=== PATIENT | female | born 1975 | race American Indian/Alaskan Native ===

== ENCOUNTER 2020-05-27 15:10 | Emergency (ER) | payer BC ==
[~2020-05-27] VITALS: Ht 165.1 cm; Wt 120.0 kg
[~2020-05-27 15:10] MED LIST: ONDA4TAB6 PO
[2020-05-27 15:31] VITALS: BP 148/76
[2020-05-27 16:13] LABS: ALANINE AMINOTRANSFERASE 32 U/L (12-78); ALBUMIN 3.6 G/DL (3.4-5.0); ALKALINE PHOSPHATASE 78 IU/L (46-116); ANION GAP 10 (8-16); ASPARTATE AMINO TRANSFERASE 20 U/L (10-37); BILIRUBIN,TOTAL 0.3 MG/DL (0.1-1.0); BLOOD UREA NITROGEN 17 MG/DL (7-18); BUN/CREATININE RATIO 15.7 (6.6-38.0); CALCIUM 9.1 MG/DL (8.5-10.1); CHLORIDE 105 MMOL/L (99-107); CREATININE 1.08 MG/DL (0.40-0.90); GLUCOSE 173 MG/DL (70-104); MAGNESIUM 1.8 MG/DL (1.5-2.4); POTASSIUM 3.1 MMOL/L (3.5-5.1); SODIUM 140 MMOL/L (135-145); TOTAL CARBON DIOXIDE 25.4 MMOL/L (24-32); TOTAL PROTEIN 7.1 G/DL (6.4-8.2); eGFR 55 ML/MIN
[2020-05-27] MEDS ORDERED: potassium Cl 20 mEq SR tablet PO ONE (16:25)
[2020-05-27] MEDS ORDERED: LORA-269 PO (16:29)
[2020-05-27] MEDS ORDERED: LORazepam 1 MG tablet PO ONE (16:35)
[2020-05-27] MEDS ORDERED: ONDA4TAB6 PO (16:39)
== END 2020-05-27 16:58 | disposition home or self-care (01) ==
LOC: ER 15:11
DX: F41.0 Panic disorder [episodic paroxysmal anxiety] (principal); E87.6 Hypokalemia; J45.909 Unspecified asthma, uncomplicated; Z88.6 Allergy status to analgesic agent; Z88.1 Allergy status to other antibiotic agents; Z79.899 Other long term (current) drug therapy
CPT/HCPCS: 36415; 80053; 83735; 99284